=== PATIENT | male | born 1970 | race Caucasian/White ===

== ENCOUNTER 2016-10-31 22:35 | Emergency (ER) | payer MEDICAID ==
[~2016-10-31] VITALS: Ht 167.6 cm; Wt 82.2 kg
[2016-10-31 22:38] VITALS: BP 152/100
[2016-10-31] MEDS ORDERED: METHOCARBAMOL 750 MG TABLET ONE (23:00)
[2016-10-31] MEDS ORDERED: METHOCARBAMOL 750 MG TABLET PO ONE (23:00)
[2016-10-31] MEDS ORDERED: KETOROLAC 30 MG/1 ML IM ONE (23:00)
[2016-10-31] MEDS ORDERED: KETOROLAC 30 MG/1 ML ONE (23:00)
== END 2016-10-31 23:26 | disposition home or self-care (01) ==
LOC: ED 23:00
DX: M62.838 Other muscle spasm (principal)
CPT/HCPCS: 96372; 99283; J1885

== ENCOUNTER 2016-11-08 12:03 | Emergency (ER) | payer MEDICAID ==
[~2016-11-08] VITALS: Ht 167.6 cm; Wt 83.4 kg
[2016-11-08 12:04] VITALS: BP 125/91
[2016-11-08] MEDS ORDERED: DIAZEPAM 5 MG TABLET ONE (12:30)
[2016-11-08] MEDS ORDERED: DIAZEPAM 5 MG TABLET PO ONE (12:30)
== END 2016-11-08 13:22 | disposition home or self-care (01) ==
LOC: ED 13:16
DX: M54.12 Radiculopathy, cervical region (principal)
CPT/HCPCS: 72125; 93005; 99284